=== PATIENT | female | born 1965 | race Caucasian/White ===

== ENCOUNTER 2017-09-19 09:45 | Emergency (ER) | payer OTHER ==
[2017-09-19 09:51] VITALS: BP 157/94
--- NOTE | 2017-09-19 11:37 | ED GI/GU/ABDOMINAL COMPLAINT ---
History of Present Illness General Chief Complaint: Abdominal Pain/Flank Pain Stated Complaint: RT SIDED ABD PAIN Source: patient Exam Limitations: no limitations Vital Signs & Intake/Output Vital Signs & Intake/Output Vital Signs Date Time Temp Pulse Resp B/P B/P Pulse O2 O2 Flow FiO2 Mean Ox Delivery Rate 09/19 0951 97.9 93 16 157/94 98 Room Air Allergies Coded Allergies: No Known Allergies (09/19/17) Reconcile Medications No Known Home Medications Triage Note: PT C/O RT SIDED ABD PAIN X3 WEEKS. DENIES ANY N/V/D. DENIES ANY URINARY SYMPTOMS. Triage Nurses Notes Reviewed? yes ? n Is pt currently ? No Onset: Abrupt Duration: week(s): (3), intermittent Timing: recent history Quality/Severity: moderate, sharpness, severe Location: right flank, right lower quadrant, right upper quadrant Radiation: back No Modifying Factors: none HPI: 51-year-old female comes into the emergency room for further evaluation of right -sided back pain as well as right-sided abdominal pain has been going on intermittently for the past 3 weeks. Pain is sharp. Radiates to the back. Comes and goes. She also feels a general abdominal pain that shoots around. Denies any blood in her urine or increased frequency from her baseline of urination. Denies any blood in her stool. 2 loose bowel movements yesterday. Denies any prior abdominal surgeries. (Eyal Pearson) Past History Travel History Traveled to [place] past 21 day No Medical History Any Pertinent Medical History? see below for history Gastrointestinal: irritable bowel syndrome Surgical History Surgical History: no abdominal surgeries Psychosocial History What is your primary language Wallisian Tobacco Use: Never used Family History Hx Contributory? No (Eyal Pearson) Review of Systems Review of Systems Constitutional: Reports: no symptoms. EENTM: Reports: no symptoms. Respiratory: Reports: no symptoms. Cardiovascular: Reports: no symptoms. GI: Reports: see HPI. Genitourinary: Reports: see HPI. Musculoskeletal: Reports: no symptoms. Skin: Reports: no symptoms. Neurological/Psychological: Reports: no symptoms. Hematologic/Endocrine: Reports: no symptoms. Immunologic/Allergic: Reports: no symptoms. All Other Systems: Reviewed and Negative (Eyal Pearson) Physical Exam Physical Exam General Appearance: well developed/nourished, alert, awake Head: atraumatic, normal appearance Eyes: Bilateral: normal appearance, EOMI. Ears, Nose, Throat, Mouth: hearing grossly normal, moist mucous membrane Neck: normal inspection Respiratory: normal breath sounds, no respiratory distress Cardiovascular: regular rate/rhythm Gastrointestinal: soft, tenderness (rlq) Back: normal inspection Extremities: normal range of motion Neurologic/Psych: awake, alert, oriented x 3, normal gait, normal mood/affect Skin: intact, normal color Core Measures ACS in differential dx? No Sepsis Present: No Sepsis Focused Exam Completed? No (Haim LEARY,Eyal) Progress Differential Diagnosis: appendicitis, biliary colic, cholecystitis, diverticulitis, gastritis, hepatitis, inflamm bowel dis, kidney stone, ovarian cyst, ovarian torsion, pancreatitis, PID/cervicitis, peptic ulcer, PUD/GERD, perforated viscous, SBO, UTI/pyelo Plan of Care: Orders Procedure Date/time Status URINALYSIS 09/19 112 Complete LIPASE 09/19 112 Complete COMPREHENSIVE METABOLIC PANEL 09/19 112 Complete CBC WITHOUT DIFFERENTIAL 09/19 1125 Complete AMYLASE 09/19 1126 Complete Laboratory Tests 09/19/17 1215: Urine Color YEL, Urine Clarity CLEAR, Urine pH 6.0, Ur Specific [place] 1.025, Urine Protein NEG, Urine Ketones NEG, Urine Nitrite NEG, Urine Bilirubin NEG, Urine Urobilinogen 0.2, Ur Leukocyte Esterase NEG, Ur Microscopic EXAM NOT REQUIRED, Urine Hemoglobin NEG, Urine Glucose NEG 09/19/17 1213: Anion Gap 15, Estimated GFR > 60, BUN/Creatinine Ratio 24.3, Glucose 89, Calcium 9.8, Total Bilirubin 0.5, AST 22, ALT 34, Alkaline Phosphatase 84, Total Protein 7.3, Albumin 4.6, Globulin 2.7, Albumin/Globulin Ratio 1.7, Amylase 105, Lipase 105, CBC w Diff NO MAN DIFF REQ, RBC 4.55, MCV 87.3, MCH 30.0, RDW 12.6, MPV 8.1 , Gran % 57.1, Lymphocytes % 28.9, Monocytes % 9.7 H, Eosinophils % 3.7, Basophils % 0.6, Absolute Granulocytes 3.5, Absolute Lymphocytes 1.8, Absolute Monocytes 0.6, Absolute Eosinophils 0.2, Absolute Basophils 0, PUBS MCHC 34.3 Diagnostic Imaging: Viewed by Me: CT Scan. Discussed w/RAD: CT Scan. Radiology Impression: PATIENT: BRIGIDO TREVIÑO PRESENT AGE: 51 PATIENT ACCOUNT NO: [id number] : 64 LOCATION: [facility] ORDERING PHYSICIAN: Eyal LEARY SERVICE DATE: 09/19/17 EXAM TYPE : CAT - CT ABD & PELVIS W/O IV CONTRAS EXAMINATION: CT ABDOMEN AND PELVIS WITHOUT CONTRAST CLINICAL INFORMATION: Right flank pain, right-sided abdominal pain COMPARISON: None TECHNIQUE: Multidetector volumetric imaging was performed from the superior aspect of the liver through the pubic symphysis. Sagittal and coronal reformatted images were obtained on the technologist's workstation. DLP: 339.07 mGy-cm FINDINGS: LUNG BASES: The visualized lung bases are unremarkable. LIVER, GALLBLADDER, AND BILIARY TREE: The liver is normal in size, shape, and attenuation. No concerning hepatic lesion or biliary ductal dilatation is present. A 6 mm hypodensity in the lateral segment of the left lobe of liver ( image 26, series 2) is too small to characterize but statistically a benign finding such as a small cyst or hemangioma. The gallbladder is contracted and not fully evaluated. No evidence of pericholecystic changes. PANCREAS: Unremarkable. SPLEEN: Unremarkable. ADRENAL GLANDS: Unremarkable. KIDNEYS AND URETERS: The kidneys are normal in size, shape, and attenuation. No hydronephrosis, hydroureter, or calculi seen. No perinephric stranding. BLADDER: Unremarkable. GASTROINTESTINAL TRACT: The small and large bowel are unremarkable. The appendix is unremarkable. ABDOMINAL WALL: No significant hernia is appreciated. LYMPH NODES: Normal. VASCULAR: Unremarkable. PELVIC VISCERA: Unremarkable. OSSEOUS STRUCTURES: Mild degenerative changes. Bone island is seen at T9. IMPRESSION: No significant abnormality. DICTATED BY: Branden Hampton MD DATE/TIME DICTATED:09/19/171222 CALCULATING MACHINE MECHANIC:MAK DATE/ TIME TRANSCRIBED:09/19/171222 CONFIDENTIAL, DO NOT COPY WITHOUT APPROPRIATE AUTHORIZATION. <Electronically signed in Other Vendor System> SIGNED BY: Branden Hampton MD 09/19/17 1234 Initial ED EKG: none (Haim LEARY,Eyal) Departure Departure Disposition: HOME OR SELF CARE Condition: Stable Clinical Impression Primary Impression: Abdominal pain Referrals: Teagan Contreras (PCP/Family) Additional Instructions: Follow-up with heating and ventilation engineer for your primary care doctor for ultrasound of gallbladder and an upper endoscopy. Return if any concerns worsening symptoms. Please go over all results of today's visit with your primary care doctor. Contact your primary care doctor to let them know you were here in the emergency room. There may be nonspecific findings which may not be related to your visit today here in the emergency room but may require further evaluation and chronic monitoring by your primary care doctor. If you had a laceration today the chance of foreign body always remains. You should follow-up with your primary care doctor for recheck in 3-5 days for a wound check. If you had an x-ray done there is a chance that a fracture could have been missed on initial read and you should follow-up with your primary care doctor for repeat x-rays if symptoms persist. If your blood pressure was elevated here in the emergency room please have rechecked by [facility] primary care doctor within the next 48. If you were prescribed a narcotic here in the emergency room or any type of controlled substances you're not allowed to drive while taking this medication or operate any type of heavy machinery. Narcotics can make you feel lightheaded dizziness nausea and can cause constipation. You may need to pickle sorter a stool softener. Thank you for choosing [facility] emergency room. Please return to the emergency room immediately if you have any other concerns worsening of symptoms. Departure Forms: Customer Survey General Discharge Information Prescriptions: Current Visit Scripts No Known Home Medications Comments 09/19/2017 2:34:15 PM Patient clinically looks well. In no apparent distress. No acute findings here in the emergency room. I explained to the patient he could still be potentially renal colic but no kidney stone is actually showing up because she may have passed a stone already. I also explained the possibility of biliary colic and she should follow-up with GI doctor for and possible upper endoscopy. she clinically looks well. she is not in any distress here at discharge. she will follow up as instructed. she has seen dr. judit krause in the past. (Eyal Pearson) PA/AMMUNITION SUPERVISOR Co-Sign Statement Statement: ED Attending supervision documentation- [] I saw and evaluated the patient. I have also reviewed all the pertinent lab results and diagnostic results. I agree with the findings and the plan of care as documented in the PA's/AMMUNITION SUPERVISOR's documentation. [X] I have reviewed the ED Record and agree with the PA's/AMMUNITION SUPERVISOR's documentation. [] Additions or exceptions (if any) to the PAs/AMMUNITION SUPERVISOR's note and plan are summarized below: [] (Parth Becerril DO)
[2017-09-19 12:21] LABS: ABSOLUTE BASOPHIL COUNT 0 /CUMM (0.0-0.2); ABSOLUTE EOSINOPHIL COUNT 0.2 /CUMM (0.0-0.7); ABSOLUTE GRANULOCYTE CT 3.5 /CUMM (1.4-6.5); ABSOLUTE LYMPH COUNT 1.8 /CUMM (1.2-3.4); ABSOLUTE MONOCYTE COUNT 0.6 /CUMM (0.10-0.60); BASOPHIL % 0.6 % (0.0-2.0); EOSINOPHIL % 3.7 % (0-5); GRANULOCYTE % 57.1 % (42.2-75.2); HEMATOCRIT 39.7 % (37-47); MEAN CORPUSCULAR HGB CONC 34.3 G/DL (33.0-37.0); MEAN CORPUSCULAR VOLUME 87.3 FL (81.0-99.0); MEAN PLATELET VOLUME 8.1 FL (7.4-10.4); PLATELET COUNT 275 /CUMM (130-400); RBC DISTRIBUTION WIDTH 12.6 % (11.5-14.5); RED BLOOD CELL CT 4.55 /CUMM (4.20-5.40); WHITE BLOOD CELL COUNT 6.1 /CUMM (4.8-10.8)
--- NOTE | 2017-09-19 12:34 | CT SCAN REPORT ---
EXAMINATION: CT ABDOMEN AND PELVIS WITHOUT CONTRAST CLINICAL INFORMATION: Right flank pain, right-sided abdominal pain COMPARISON: None TECHNIQUE: Multidetector volumetric imaging was performed from the superior aspect of the liver through the pubic symphysis. Sagittal and coronal reformatted images were obtained on the technologist's workstation. DLP: 339.07 mGy-cm FINDINGS: LUNG BASES: The visualized lung bases are unremarkable. LIVER, GALLBLADDER, AND BILIARY TREE: The liver is normal in size, shape, and attenuation. No concerning hepatic lesion or biliary ductal dilatation is present. A 6 mm hypodensity in the lateral segment of the left lobe of liver (image 26, series 2) is too small to characterize but statistically a benign finding such as a small cyst or hemangioma. The gallbladder is contracted and not fully evaluated. No evidence of pericholecystic changes. PANCREAS: Unremarkable. SPLEEN: Unremarkable. ADRENAL GLANDS: Unremarkable. KIDNEYS AND URETERS: The kidneys are normal in size, shape, and attenuation. No hydronephrosis, hydroureter, or calculi seen. No perinephric stranding. BLADDER: Unremarkable. GASTROINTESTINAL TRACT: The small and large bowel are unremarkable. The appendix is unremarkable. ABDOMINAL WALL: No significant hernia is appreciated. LYMPH NODES: Normal. VASCULAR: Unremarkable. PELVIC VISCERA: Unremarkable. OSSEOUS STRUCTURES: Mild degenerative changes. Bone island is seen at T9. IMPRESSION: No significant abnormality.
== END 2017-09-19 13:19 ==
LOC: ERH 09:45
PROVIDERS: Physician Assistant Medical
DX: R10.31 Right lower quadrant pain (principal)
CPT/HCPCS: 74176; 81003